=== PATIENT | male | born 1960 | race Caucasian/White ===

== ENCOUNTER → 2016-04-14 | Outpatient (CLI) | payer BC ==
[~2016-04-14] MED LIST: ASPI81TA28 PO; DOCU-94 PO; GLUCTAB32 PO; MULT-506 PO; SULF800T23 PO; TPRSR/100 PO
--- NOTE | 2016-04-14 11:30 | DIAGNOSTIC IMAGING REPORT ---
ULTRASOUND RIGHT UPPER QUADRANT ABDOMEN CLINICAL HISTORY: Right upper quadrant abdominal pain. Elevated hepatic transaminases. COMPARISON STUDY: No priors. TECHNIQUE: Real-time, grayscale, and color flow sonography of the right upper quadrant of the abdomen was performed. Images are reviewed in the transverse and longitudinal planes. FINDINGS: Liver: The liver is normal in enlarged and demonstrates heterogeneously increased echotexture consistent with hepatic steatosis. There is no intrahepatic biliary ductal dilatation. The main portal vein is patent. Gallbladder: The gallbladder is normal in appearance. No gallstones are identified. There is no gallbladder wall thickening or pericholecystic fluid. A sonographic Rose's sign is reportedly absent. The common bile duct measures up to 0.5 cm in diameter. Pancreas: Not well visualized due to overlying bowel gas. Right kidney: Survey images of the right kidney demonstrate normal size and echotexture. There is no hydronephrosis. Ascites: None. IMPRESSION: 1. No acute sonographic abnormality is identified. No gallstones are seen. 2. Hepatomegaly and hepatic steatosis. Electronically signed by: Milo Aguilera M.D. 04/14/2016 11:29 AM Dictated Date/Time: 04/14/2016 11:24 AM
--- NOTE | 2016-04-14 12:02 | DIAGNOSTIC IMAGING REPORT ---
ULTRASOUND BILATERAL LOWER EXTREMITY ARTERIAL; ANKLE-BRACHIAL INDICES CLINICAL HISTORY: Lower extremity neuropathy. COMPARISON STUDY: No priors. TECHNIQUE: Real-time, grayscale, and color Doppler sonography of the arteries of the right and left lower extremity is performed from the inguinal crease to the foot. Ankle-brachial indices are calculated. FINDINGS: Ankle-brachial indices: Right brachial pressure measures 112. Pressures in the right posterior tibial artery measure 137 for an ABELARDO of 1.12, and pressures in the right or dorsalis pedis artery measure 140 for an ABELARDO of 1.15. Left brachial pressure measures 122. Left posterior tibial artery pressure measures 147 for an ABELARDO of 1.20, and left dorsalis pedis pressures measure 139 for an ABELARDO of 1.14. Right lower extremity: No significant atherosclerotic plaque is identified throughout the arteries of the right lower extremity. There are triphasic waveforms in the right common femoral artery with velocities measuring up to 113 cm/s. The right profunda femoris artery is patent with velocities measuring up to 66 cm/s. There are triphasic waveforms seen throughout the superficial femoral artery with velocities measuring up to 135 cm/s. There are triphasic waveforms in the popliteal artery with velocities measuring up to 108 cm/s. There is three-vessel runoff to the right foot. Velocities within the dorsalis pedis artery measure up to 206 cm/s. Left lower extremity: No significant atherosclerotic plaque is identified. There are triphasic waveforms seen in the left common femoral artery with velocities measuring up to 93 cm/s. The profunda femoris artery is patent with velocities measuring up to 56 cm/s. There are triphasic waveforms seen throughout the left superficial femoral artery with velocities measuring up to 118 cm/s. Triphasic waveforms are present in the popliteal artery with velocities measuring up to 97 cm/s. There is three-vessel runoff to the left foot. Velocities within the left dorsalis pedis artery measure up to 104 cm/s. IMPRESSION: 1. No significant atherosclerotic plaque is identified. There is no sonographic evidence of hemodynamically significant stenosis or focal vessel cut off throughout the arteries of the right or left lower extremity. 2. Ankle brachial indices as above. Dictated: 04/14/2016 11:44 AM Transcribed: 04/14/2016 12:01 PM Martha Electronically signed by: Milo Aguilera M.D. 04/14/2016 12:08 PM Dictated Date/Time: 04/14/2016 11:44 AM
== END | disposition home or self-care (01) ==
LOC: C.ULTR 09:37
PROVIDERS: ATTEND Family Medicine
DX: R94.5 Abnormal results of liver function studies (principal); I73.9 Peripheral vascular disease, unspecified

== ENCOUNTER → 2016-12-14 | Outpatient (CLI) | payer BC ==
[2016-12-14 12:48] LABS: BASO % 0.4 %; BASO ABS # 0.03 K/uL (0-0.2); COMPLETE YES; EOS % 2.9 %; HEMATOCRIT 42.4 % (42-52); IG% 0.3 %; LYMPH ABS # 1.91 K/uL (1.2-3.4); MEAN CORPUSCULAR HEMOGLOBIN 29.3 pg (25-34); MEAN CORPUSCULAR HGB CONC 33.3 g/dl (32-36); MEAN PLATELET VOLUME 10.8 fL (7.4-10.4); MONO % 9.4 %; PLATELET COUNT 226 K/uL (130-400); RED BLOOD COUNT 4.82 M/uL (4.7-6.1); WHITE BLOOD COUNT 7.35 K/uL (4.8-10.8)
[2016-12-14 13:19] LABS: ALT/SGPT 44 U/L (12-78); BLOOD UREA NITROGEN 16 mg/dl (7-18); BUN/CREATININE RATIO 16.2 (10-20); CALCIUM 9.3 mg/dl (8.5-10.1); CARBON DIOXIDE 25 mmol/L (21-32); CHLORIDE 106 mmol/L (98-107); CHOLESTEROL 149 mg/dl (0-200); CREATININE 0.99 mg/dl (0.60-1.40); GLUCOSE 105 mg/dl (70-99); POTASSIUM 4.4 mmol/L (3.5-5.1); SODIUM 139 mmol/L (136-145); TRIGLYCERIDES 246 mg/dl (0-150); VERY LOW DENSITY LIPOPROT CALC 49 mg/dl
[2016-12-14 13:23] LABS: ALB/GLOB RATIO 1.1 (0.9-2); ALKALINE PHOSPHATASE 82 U/L (45-117); AST/SGOT 33 U/L (15-37); CHOLESTEROL/HDL RATIO 3.6; HDL CHOLESTEROL 41 mg/dl; LDL CHOLESTEROL CALCULATED 59 mg/dl
== END | disposition home or self-care (01) ==
LOC: C.LAB 11:12
PROVIDERS: ATTEND Physician Assistant Medical
DX: E11.65 Type 2 diabetes mellitus with hyperglycemia (principal); Z13.89 Encounter for screening for other disorder; E78.2 Mixed hyperlipidemia

== ENCOUNTER 2023-12-14 18:47 | Inpatient (IN) ==
[2023-12-14] MEDS ORDERED: MoRPHine SULFATE 4 MG/ML 1 ML CARP\\VIAL IV PRN (19:15)
--- NOTE | 2023-12-14 19:29 | Emergency Department Note ---
Impression & Plan Acute left flank pain, Ureteral stone, Hydronephrosis, KAYLYNN (acute kidney injury), Failure of outpatient treatment ED Provider Note NAME: FRANCISCO FLORES AGE: 63 SEX: M : 1960 ARRIVES VIA: Walk-In INFORMANT: [Patient] ED PROVIDER(S): [Milo Helms MD] CHIEF COMPLAINT: Left flank pain HISTORY OF PRESENT ILLNESS: The patient is a 63-year-old male who states that around a week ago, he thought maybe he hurt his back as he seemed to have some intermittent pain in the left flank. It was better for a bit and then, when he was in [place], he began having severe discomfort. He went to the ED there and was told he was passing a kidney stone. The patient is waiting for a urology appointment. The patient presents today complaining of increasing pain in the left flank. He works here at our hospital. He thought maybe he may have pulled a muscle on top of passing a kidney stone. He cannot recall pulling or lifting something that would have aggravated his back. Patient has had nausea, no vomiting. He does not have any testicular pain. He did notice some changes in his urine initially, that seems to have resolved. He was prescribed medication for pain and to help with stone passage. PMHx/PSHx/Social Hx: See Below PHYSICAL EXAM: GENERAL: Patient is in moderate distress from pain. Having a hard time sitting still. HEENT: No acute trauma, normocephalic atraumatic, mucous membranes moist, no nasal congestion. NECK: No stridor, no adenopathy, no meningismus, trachea is midline. LUNGS: Clear to auscultation bilaterally, no wheeze, no rhonchi, breath sounds equal. HEART: Without murmurs gallops or rubs, regular rate and rhythm. ABDOMEN: Soft, nontender, no peritonitis. EXTREMITIES: No cyanosis, full range of motion of all the joints without pain or difficulty. NEUROLOGIC: Oriented x 3, no acute motor or sensory deficits, no focal weakness. SKIN: No jaundice, no diaphoresis. Back: No flank discomfort with percussion. DIFFERENTIAL DIAGNOSIS: Musculoskeletal pain, fracture, UTI, pyelonephritis, hydronephrosis, ureteral stone, failed outpatient management, among others. EMERGENCY DEPARTMENT PROCEDURES: MEDICAL DECISION MAKING: There is no leukocytosis or concerning anemia. There is a normal platelet count. There is evidence for acute kidney injury with a creatinine of 1.76. No electrolyte abnormality in need of emergent correction. Lipase slightly elevated, this is not high enough to diagnose pancreatitis. There was no concerning liver enzyme elevation. Abdominal and pelvis CT shows hydronephrosis on the left with a proximal 5 mm left ureteral stone. No acute surgical process by CT imaging. Urinalysis result is pending. On exam, the patient appeared quite uncomfortable and had a hard time sitting still. The patient received IV saline, 1 L. He was given IV Zofran, IV morphine, IV Toradol. He is more comfortable. Given the acute kidney injury, given the failed outpatient management, I do think a hospital stay is warranted. He may require ureteral stenting by urology. I did speak with the patient and case management. The on-call hospitalist was consulted. Prior/Outside records/notes reviewed: None Imaging/x-ray results per my interpretation: Chronic Medical/Social conditions affecting care: None Care/Management discussed with: Case management, the on-call hospitalist. Level of care consideration(s): After review of the information above and other included data: --I believe the patient requires escalation of care to admission DISPOSITION: Admission Past Med/Surg History Problem List (Updated 12/14/23 @ 21:33 by Milo Helms MD) Failure of outpatient treatment (Acute) KAYLYNN (acute kidney injury) (Acute) Hydronephrosis (Acute) Ureteral stone (Acute) Acute left flank pain (Acute) Cardiomyopathy Frequent ventricular premature beats Heart palpitations (Chronic) Sepsis Medical History Serrated adenoma of colon Sciatica Hypercholesterolemia Exogenous obesity Dysrhythmias Blood pressure elevated without history of HTN Apnea, sleep Diabetes Surgical History History of appendectomy Social History Smoking Status: Never smoker Preferred Language: Romansh Feels Safe at Home: Yes Allergies Allergies Allergy/AdvReac Type Severity Reaction Status Date / Time No Known Allergies Allergy Verified 07/02/23 21:18 Home Meds Home Medications Medication Instructions Recorded Confirmed armodafinil 150 mg tablet (Nuvigil) 150 mg PO QAM 11/22/18 07/02/23 canagliflozin 100 mg tablet 100 mg PO DAILY 11/22/18 07/02/23 gabapentin 300 mg capsule 300 mg PO DAILY 11/22/18 07/02/23 metformin 1,000 mg tablet 1,000 mg PO BID 11/22/18 07/02/23 multivitamin (Daily Multi-Vitamin 1 tab PO DAILY 11/22/18 07/02/23 tablet) Glucosamine Chondroitin See Rx Instructions .Route .COMPLEX 07/02/23 07/02/23 atorvastatin 10 mg tablet 10 mg PO PM 07/02/23 07/02/23 fenofibrate nanocrystallized 145 145 mg PO PM 07/02/23 07/02/23 mg tablet Previous Rx's Medication Instructions Recorded canagliflozin 100 mg tablet 100 mg PO DAILY #30 tabs 07/02/23 lisinopril 5 mg tablet 5 mg PO DAILY #90 tabs 07/03/23 metoprolol succinate 200 mg 200 mg PO DAILY #90 tabs 07/24/23 tablet,extended release 24 hr Results & Data (ED) Vital Signs Vital Signs - 24 hr 12/14/23 18:56 12/14/23 19:57 12/14/23 21:18 Temperature 36.6 C Temperature Source Temporal Artery Scan Pulse Rate 89 Pulse Rate [Right Finger] 91 H 84 Respiratory Rate 18 19 19 Respiratory Effort / Characteristics Non-Labored Spontaneous Respiratory Depth Normal Respiratory Pattern Regular Blood Pressure 164/98 H Blood Pressure [Right Arm] 178/114 H 138/85 Blood Pressure Mean 120 Blood Pressure Mean [Right Arm] 135 102 Blood Pressure Position Sitting Pulse Oximetry 97 98 94 Oxygen Delivery Method Room Air Room Air Room Air Sepsis Recent Fever Within 48 Hours No Sepsis New/Unexplained Change in Mental Status N/A Sepsis Action Taken by Nursing No Action Required Home Medications Current Medication List: was personally reviewed by me Laboratory Data Attestation: I reviewed the patient's lab results. 12/14/23 19:00 12/14/23 19:00 Lab Results 12/14/23 Range/Units 19:00 WBC 10.47 (4.8-10.8) K/ul RBC 4.71 (4.70-6.10) M/uL Hgb 13.6 L (14.0-18.0) g/dl Hct 40.7 L (42.0-52.0) % MCV 86.4 (80.0-100.0) fL MCH 28.9 (25.0-34.0) pg MCHC 33.4 (32.0-36.0) g/dL RDW Std Deviation 44.0 (36.4-46.3) fL RDW Coeff of Gosia 13.8 (11.5-14.5) % Plt Count 250 (130-400) K/uL MPV 11.1 (9.4-12.4) fL Immature Gran % (Auto) 0.3 % Neut % (Auto) 78.9 % Lymph % (Auto) 9.6 % [place] % (Auto) 10.3 % Eos % (Auto) 0.6 % Baso % (Auto) 0.3 % Neut # (Auto) 8.26 H (1.40-6.50) K/uL Lymph # (Auto) 1.01 L (1.20-3.40) K/uL [place] # (Auto) 1.08 H (0.11-0.59) K/uL Eos # (Auto) 0.06 (0.00-0.50) K/uL Baso # (Auto) 0.03 (0.00-0.20) K/uL Immature Gran # (Auto) 0.03 (0.01-0.20) K/uL Sodium 134 L (136-145) mmol/L Potassium 4.6 (3.5-5.1) mmol/L Chloride 98 (98-107) mmol/L Carbon Dioxide 25 (21-32) mmol/L Anion Gap 11 (3-11) BUN 31 H (6-23) mg/dl Creatinine 1.76 H (0.6-1.4) mg/dl Est Cr Clr Drug Dosing Not Reportable eGFR 42.91 BUN/Creatinine Ratio 17.6 (10-20) Glucose 86 (70-99(Fasting)) mg/dl Calcium 10.4 H (8.6-10.3) mg/dl Total Bilirubin 0.7 (0.2-1.0) mg/dl AST 20 (13-39) U/L ALT 12 (7-52) U/L Alkaline Phosphatase 52 (34-104) U/L Total Protein 8.1 (6.0-8.3) gm/dl Albumin 4.5 (3.4-5.0) gm/dl Globulin 3.6 (2.5-4.0) gm/dl Albumin/Globulin Ratio 1.3 (0.9-2) Lipase 126 H (11-82) U/L Administered Medications Discontinued Medications Sodium Chloride (Nss) 1,000 mls @ 999 mls/hr IV .Q1H1M STA Stop: 12/14/23 20:15 Last Infusion: 12/14/23 21:15 Dose: Infused Documented By: Admin: 12/14/23 19:54 Dose: 999 mls/hr Documented By: ASW Ketorolac Tromethamine (Ketorolac Tromethamine 15 Mg/Ml Vial) 15 mg IV NOW STA Stop: 12/14/23 19:16 Last Admin: 12/14/23 19:54 Dose: 15 mg Documented By: ASW Morphine Sulfate (Morphine Sulfate 4 Mg/Ml 1 Ml Carp\Vial) 4 mg IV NOW STA Stop: 12/14/23 19:16 Last Admin: 12/14/23 19:54 Dose: 4 mg Documented By: ASW Ondansetron HCl (Ondansetron Inj 2 Mg/Ml 2 Ml Vial) 4 mg IV NOW STA Stop: 12/14/23 19:16 Last Admin: 12/14/23 19:54 Dose: 4 mg Documented By: ASW Imaging Data Radiologist's Impression: Abdomen/Pelvis CT 12/14/23 19:16 Exam(s): CT ABDOMEN + PELVIS Without Contrast EXAM: CT Abdomen and Pelvis Without Intravenous Contrast CLINICAL HISTORY: Reason for exam: left flank pain. TECHNIQUE: Axial computed tomography images of the abdomen and pelvis without intravenous contrast. CTDI is 27 mGy and DLP is 1389.3 mGy-cm. Automated exposure control was utilized for the study. A dose lowering technique was utilized adhering to the principles of ALARA. COMPARISON: No relevant prior studies available. FINDINGS: Lung bases: Unremarkable. No mass. No consolidation. ABDOMEN: Liver: Unremarkable. Gallbladder and bile ducts: Unremarkable. No calcified stones. No ductal dilation. Pancreas: Unremarkable. No ductal dilation. Spleen: Unremarkable. No splenomegaly. Adrenals: Unremarkable. No mass. Kidneys and ureters: There is left sided hydroureteronephrosis due to the presence of a 5 mm calculus in the left proximal ureter. 1.5 mm nonobstructing stone seen in the lower pole of the left kidney. Stomach and bowel: Moderate amount of fecal matter is seen in the cecum and ascending colon. No obstruction. No mucosal thickening. PELVIS: Appendix: No findings to suggest acute appendicitis. Bladder: Unremarkable. No stones. Reproductive: Unremarkable as visualized. ABDOMEN and PELVIS: Intraperitoneal space: Unremarkable. No free air. No significant fluid collection. Bones/joints: No acute fracture. No dislocation. Soft tissues: Unremarkable. Vasculature: Unremarkable. No abdominal aortic aneurysm. Lymph nodes: Unremarkable. No enlarged lymph nodes. Other findings: There is L2/3 posterior disc osteophyte complex seen. IMPRESSION: Left hydroureteronephrosis due to 5 mm diameter calculus in the left proximal ureter Electronically signed by: Jhonny De La Torre MD 12/14/23 21:05 PM Discharge Plan Visit Data Chief Complaint: Back Injury/Pain Stated Complaint: back spasms, pain ED Provider: Milo Helms Discharge Problem: Acute left flank pain, Ureteral stone, Hydronephrosis, KAYLYNN (acute kidney injury), Failure of outpatient treatment Patient Disposition: Admitted As Inpatient Condition: Fair Forms Stand Alone Forms: [facility] Prescriptions Prescriptions: No Action lisinopril 5 mg tablet 5 mg PO DAILY Qty: 90 3RF metoprolol succinate 200 mg tablet extended release 24 hr 200 mg PO DAILY Qty: 90 3RF gabapentin 300 mg capsule 300 mg PO DAILY Invokana 100 mg tablet 100 mg PO DAILY metformin 1,000 mg tablet 1,000 mg PO BID multivitamin [Daily Multi-Vitamin] tablet 1 tab PO DAILY armodafinil [Nuvigil] 150 mg tablet 150 mg PO QAM atorvastatin 10 mg tablet 10 mg PO PM fenofibrate nanocrystallized 145 mg tablet 145 mg PO PM Glucosamine Chondroitin See Rx Instructions .ROUTE .COMPLEX Patient Comments: 1 tab PO BID; Rx Instructions: Patient states he takes; 1 tablet by mouth twice daily canagliflozin 100 mg tablet 100 mg PO DAILY Qty: 30 0RF Referrals Referrals: Shailesh Guerra [Primary Care Provider] - Discharge Problem: Hydronephrosis Qualifiers: Hydronephrosis type: with renal calculous obstruction Qualified Code(s): N13.2 - Hydronephrosis with renal and ureteral calculous obstruction
[2023-12-14] MEDS: ONDANSETRON INJ 2 MG/ML 2 ML VIAL IV STA (19:54)
[2023-12-14] MEDS: SODIUM CHLORIDE 0.9% 1,000 ML IV STA (19:54)
[2023-12-14] MEDS: MoRPHine SULFATE 4 MG/ML 1 ML CARP\\VIAL IV STA (19:54)
[2023-12-14] MEDS: KETOROLAC TROMETHAMINE 15 MG/ML VIAL IV STA (19:54)
[2023-12-14 20:02] LABS: Basophils # (auto) 0.03 K/uL (0.00-0.20); Basophils % (auto) 0.3 %; Eosinophils # (auto) 0.06 K/uL (0.00-0.50); Eosinophils % (auto) 0.6 %; Hematocrit (blood only) 40.7 % (42.0-52.0); Hemoglobin 13.6 g/dl (14.0-18.0); Immature Granulocytes # (auto) 0.03 K/uL (0.01-0.20); Immature Granulocytes % (auto) 0.3 %; Lymphocytes # (auto) 1.01 K/uL (1.20-3.40); Lymphocytes % (auto) 9.6 %; Mean Corpuscular Hemoglobin 28.9 pg (25.0-34.0); Mean Corpuscular Hgb Conc 33.4 g/dL (32.0-36.0); Mean Corpuscular Volume 86.4 fL (80.0-100.0); Mean Platelet Volume 11.1 fL (9.4-12.4); Monocytes # (auto) 1.08 K/uL (0.11-0.59); Monocytes % (auto) 10.3 %; Neutrophils # (auto) 8.26 K/uL (1.40-6.50); Neutrophils % (auto) 78.9 %; Platelet Count 250 K/uL (130-400); RDW Coefficient of Variation 13.8 % (11.5-14.5); Red Blood Count 4.71 M/uL (4.70-6.10); White Blood Count 10.47 K/ul (4.8-10.8)
[2023-12-14 20:13] LABS: Alanine Aminotransferase 12 U/L (7-52); Albumin Globulin Ratio 1.3 (0.9-2); Albumin Level 4.5 gm/dl (3.4-5.0); Alkaline Phosphatase 52 U/L (34-104); Anion Gap 11 (3-11); Aspartate Aminotransferase 20 U/L (13-39); BUN Creatinine Ratio 17.6 (10-20); Bilirubin,Total 0.7 mg/dl (0.2-1.0); Blood Urea Nitrogen 31 mg/dl (6-23); Calcium 10.4 mg/dl (8.6-10.3); Carbon Dioxide 25 mmol/L (21-32); Chloride 98 mmol/L (98-107); Globulin 3.6 gm/dl (2.5-4.0); Glucose 86 mg/dl (70-99(Fasting)); Lipase 126 U/L (11-82); Potassium 4.6 mmol/L (3.5-5.1); Sodium 134 mmol/L (136-145); Total Protein 8.1 gm/dl (6.0-8.3)
--- NOTE | 2023-12-14 21:06 | CT Scan Report ---
Exam(s): CT ABDOMEN + PELVIS Without Contrast EXAM: CT Abdomen and Pelvis Without Intravenous Contrast CLINICAL HISTORY: Reason for exam: left flank pain. TECHNIQUE: Axial computed tomography images of the abdomen and pelvis without intravenous contrast. CTDI is 27 mGy and DLP is 1389.3 mGy-cm. Automated exposure control was utilized for the study. A dose lowering technique was utilized adhering to the principles of ALARA. COMPARISON: No relevant prior studies available. FINDINGS: Lung bases: Unremarkable. No mass. No consolidation. ABDOMEN: Liver: Unremarkable. Gallbladder and bile ducts: Unremarkable. No calcified stones. No ductal dilation. Pancreas: Unremarkable. No ductal dilation. Spleen: Unremarkable. No splenomegaly. Adrenals: Unremarkable. No mass. Kidneys and ureters: There is left sided hydroureteronephrosis due to the presence of a 5 mm calculus in the left proximal ureter. 1.5 mm nonobstructing stone seen in the lower pole of the left kidney. Stomach and bowel: Moderate amount of fecal matter is seen in the cecum and ascending colon. No obstruction. No mucosal thickening. PELVIS: Appendix: No findings to suggest acute appendicitis. Bladder: Unremarkable. No stones. Reproductive: Unremarkable as visualized. ABDOMEN and PELVIS: Intraperitoneal space: Unremarkable. No free air. No significant fluid collection. Bones/joints: No acute fracture. No dislocation. Soft tissues: Unremarkable. Vasculature: Unremarkable. No abdominal aortic aneurysm. Lymph nodes: Unremarkable. No enlarged lymph nodes. Other findings: There is L2/3 posterior disc osteophyte complex seen. IMPRESSION: Left hydroureteronephrosis due to 5 mm diameter calculus in the left proximal ureter Electronically signed by: Jhonny De La Torre MD 12/14/23 21:05 PM
[2023-12-14 21:37] LABS: Appearance Urine Clear (Clear); Bilirubin Urine Negative (Negative); Blood Urine Negative (Negative); Color Urine Yellow; Glucose Urine UA 3+ (Negative); Ketones Urine 1+ (Negative); Leukocyte Esterase Urine Negative (Negative); Nitrite Urine Negative (Negative); Protein Urine Negative (Negative); Specific Gravity Urine 1.032 (1.000-1.030); Urobilinogen Urine Negative (Negative)
--- NOTE | 2023-12-14 22:00 | History & Physical Report ---
Date of Service December 14, 2023 Assessment & Plan (1) KAYLYNN (acute kidney injury): Plan: Multifactorial: Obstructive uropathy from kidney stone NSAID Rx contributory Anemia possibly from hematuria hx nonischemic cardiomyopathy, patient on the dry side PAF, patient NSR hypertension, stable hyperlipidemia, on statin Rx DM2 on oral medications, well-controlled as of recent hemoglobin A1c of 6.17 October 2023 history of melanoma status post surgery Narcotic induced constipation Admit to [facility] Baseline UA, monitor creatinine response to IVF Hold lisinopril and NSAID Rx given ARF Continue Flomax Strain urine Urology consult Re: Obstructive uropathy N.p.o. after midnight in anticipation of procedure Bowel regimen ISS BG goal 1 10-1 40 DVT prophylaxis. SCDs Re: Hematuria Full code Text document was generated using [employer] voice recognition software. It may contain grammatical or spelling errors. Kindly contact undersigned for clarification of any documentation item in question. History of Present Illness Chief Complaint: Left flank pain, kidney stone Primary Care Provider: Shailesh Guerra History obtained from patient and records. Medical history significant for hx nonischemic cardiomyopathy (EF 60-65 %, TTE 2020), PAF, PVCs, hypertension, hyperlipidemia, DARELL, DM2 on oral medications, history of melanoma status post surgery, urolithiasis. Last confinement 2015 for right knee cellulitis/prepatellar bursitis. 2 weeks ago, patient noted intermittent achy left flank pain symptoms which started from lifting a bag of cement. Last week, patient noted intense left flank discomfort associated with some hematuria, nausea, vomiting symptoms while shopping for furniture with at [place]. Patient seen at [facility] ER. CAT scan showed kidney stone on the left side. Patient prescribed Flomax, home narcotic, and NSAID medication. He was instructed to strain urine. Intermittent relief of pain at home. Constipation symptoms noted. Patient consulted ER for worsening symptoms today. No fever, no chills. Denies headache, chest pain, SOB. Medical History as above Surgical History : Skin cancer surgery/skin grafting Family History : Heart disease Personal/Social history : Non-smoker, no EtOH intake, hospital facilities employee Allergies Allergy/AdvReac Type Severity Reaction Status Date / Time No Known Allergies Allergy Verified 12/14/23 22:34 Home Medications Medication Instructions Recorded Confirmed Type armodafinil 150 mg tablet (Nuvigil) 150 mg PO QAM 11/22/18 12/14/23 History canagliflozin 100 mg tablet 100 mg PO QAM 11/22/18 12/14/23 History gabapentin 300 mg capsule 300 mg PO HS 11/22/18 12/14/23 History metformin 1,000 mg tablet 1,000 mg PO BID 11/22/18 12/14/23 History atorvastatin 10 mg tablet 10 mg PO HS 07/02/23 12/14/23 History fenofibrate nanocrystallized 145 145 mg PO HS 07/02/23 12/14/23 History mg tablet cyclobenzaprine 10 mg tablet 10 mg PO DAILY PRN Muscle Spasm 12/14/23 12/14/23 History dulaglutide 1.5 mg/0.5 mL 1.5 mg subcut WK 12/14/23 12/14/23 History subcutaneous pen injector (Trulicity) glucosamine sulf dipot 1 cap PO BID 12/14/23 12/14/23 History chlr,msm,chond 550 mg-C 30 mg-kim 1 mg capsule (Glucosamine Chondroitin) lisinopril 5 mg tablet 5 mg PO QAM 12/14/23 12/14/23 History metoprolol succinate 200 mg 200 mg PO QAM 12/14/23 12/14/23 History tablet,extended release 24 hr rkqdmnxjgsko-zapionys-pzxmwm 1 tab PO QAM 12/14/23 12/14/23 History tablet (Multivitamin 50 Plus tablet) tamsulosin 0.4 mg capsule 0.8 mg PO QAM 12/14/23 12/14/23 History tramadol 50 mg tablet 50 mg PO Q6 PRN Pain 12/14/23 12/14/23 History Past Med/Surg History Problem List (Updated 12/14/23 @ 21:33 by Milo Helms MD) Failure of outpatient treatment (Acute) KAYLYNN (acute kidney injury) (Acute) Hydronephrosis (Acute) Ureteral stone (Acute) Acute left flank pain (Acute) Cardiomyopathy Frequent ventricular premature beats Heart palpitations (Chronic) Sepsis Medical History Serrated adenoma of colon Sciatica Hypercholesterolemia Exogenous obesity Dysrhythmias Blood pressure elevated without history of HTN Apnea, sleep Diabetes Surgical History History of appendectomy Social History Smoking Status: Unknown if ever smoked Hx Alcohol Use: No Hx Substance Use: No Preferred Language: Tajik Communication Ability: Effective Payer Specialist Required: No Beliefs That Will Affect Care: None Current Living Situation: Family Feels Safe at Home: Yes Review of Systems Review of Systems: As per HPI, all other systems reviewed and negative Physical Exam Physical Exam: GENERAL: Comfortable, pleasant, no respiratory distress SKIN: Normal color, warm HEENT: [place] palpebral conjunctivae, no ptosis, dry buccal mucosa NECK : Supple, no tenderness CHEST : CTA, no tenderness HEART : RRR, no obvious murmurs ABDOMEN: Some distention, left flank tenderness EXTREMITIES : No LE swelling/tenderness, no other conspicuous deformities noted NEUROLOGIC : Coherent, no facial asymmetry, no other gross focality Results & Data Results & Data Vital Signs (Past 12 Hours) Vital Signs Temp Pulse Pulse Resp BP BP Pulse Ox 12/14/23 21:18 84 19 138/85 94 12/14/23 19:57 91 H 19 178/114 H 98 12/14/23 18:56 36.6 C 89 18 164/98 H 97 O2 Del Method 12/14/23 21:18 Room Air 12/14/23 19:57 Room Air 12/14/23 18:56 Room Air Laboratory Results Laboratory Results WBC 10.47 K/ul (4.8-10.8) 12/14/23 19:00 RBC 4.71 M/uL (4.70-6.10) 12/14/23 19:00 Hgb 13.6 g/dl (14.0-18.0) L 12/14/23 19:00 Hct 40.7 % (42.0-52.0) L 12/14/23 19:00 MCV 86.4 fL (80.0-100.0) 12/14/23 19:00 MCH 28.9 pg (25.0-34.0) 12/14/23 19:00 MCHC 33.4 g/dL (32.0-36.0) 12/14/23 19:00 RDW Std Deviation 44.0 fL (36.4-46.3) 12/14/23 19:00 RDW Coeff of Gosia 13.8 % (11.5-14.5) 12/14/23 19:00 Plt Count 250 K/uL (130-400) 12/14/23 19:00 MPV 11.1 fL (9.4-12.4) 12/14/23 19:00 Immature Gran % (Auto) 0.3 % 12/14/23 19:00 Neut % (Auto) 78.9 % 12/14/23 19:00 Lymph % (Auto) 9.6 % 12/14/23 19:00 White % (Auto) 10.3 % 12/14/23 19:00 Eos % (Auto) 0.6 % 12/14/23 19:00 Baso % (Auto) 0.3 % 12/14/23 19:00 Neut # (Auto) 8.26 K/uL (1.40-6.50) H 12/14/23 19:00 Lymph # (Auto) 1.01 K/uL (1.20-3.40) L 12/14/23 19:00 White # (Auto) 1.08 K/uL (0.11-0.59) H 12/14/23 19:00 Eos # (Auto) 0.06 K/uL (0.00-0.50) 12/14/23 19:00 Baso # (Auto) 0.03 K/uL (0.00-0.20) 12/14/23 19:00 Immature Gran # (Auto) 0.03 K/uL (0.01-0.20) 12/14/23 19:00 Sodium 134 mmol/L (136-145) L 12/14/23 19:00 Potassium 4.6 mmol/L (3.5-5.1) 12/14/23 19:00 Chloride 98 mmol/L (98-107) 12/14/23 19:00 Carbon Dioxide 25 mmol/L (21-32) 12/14/23 19:00 Anion Gap 11 (3-11) 12/14/23 19:00 BUN 31 mg/dl (6-23) H 12/14/23 19:00 Creatinine 1.76 mg/dl (0.6-1.4) H 12/14/23 19:00 Est Cr Clr Drug Dosing Not Reportable 12/14/23 19:00 eGFR 42.91 12/14/23 19:00 BUN/Creatinine Ratio 17.6 (10-20) 12/14/23 19:00 Glucose 86 mg/dl (70-99(Fasting)) 12/14/23 19:00 Calcium 10.4 mg/dl (8.6-10.3) H 12/14/23 19:00 Total Bilirubin 0.7 mg/dl (0.2-1.0) 12/14/23 19:00 AST 20 U/L (13-39) 12/14/23 19:00 ALT 12 U/L (7-52) 12/14/23 19:00 Alkaline Phosphatase 52 U/L (34-104) 12/14/23 19:00 Total Protein 8.1 gm/dl (6.0-8.3) 12/14/23 19:00 Albumin 4.5 gm/dl (3.4-5.0) 12/14/23 19:00 Globulin 3.6 gm/dl (2.5-4.0) 12/14/23 19:00 Albumin/Globulin Ratio 1.3 (0.9-2) 12/14/23 19:00 Lipase 126 U/L (11-82) H 12/14/23 19:00 Urine Color Yellow 12/14/23 21:28 Urine Appearance Clear (Clear) 12/14/23 21:28 Urine pH 5.0 (4.5-7.5) 12/14/23 21:28 Ur Specific [place] 1.032 (1.000-1.030) H 12/14/23 21:28 Urine Protein Negative (Negative) 12/14/23 21:28 Urine Glucose (UA) 3+ (Negative) H 12/14/23 21:28 Urine Ketones 1+ (Negative) H 12/14/23 21:28 Urine Blood Negative (Negative) 12/14/23 21: Urine Nitrite Negative (Negative) 12/14/23 21: Urine Bilirubin Negative (Negative) 12/14/23 21: Urine Urobilinogen Negative (Negative) 12/14/23 21:28 Ur Leukocyte Esterase Negative (Negative) 12/14/23 21:28 Impressions Abdomen/Pelvis CT 12/14/23 19:16 Exam(s): CT ABDOMEN + PELVIS Without Contrast EXAM: CT Abdomen and Pelvis Without Intravenous Contrast CLINICAL HISTORY: Reason for exam: left flank pain. TECHNIQUE: Axial computed tomography images of the abdomen and pelvis without intravenous contrast. CTDI is 27 mGy and DLP is 1389.3 mGy-cm. Automated exposure control was utilized for the study. A dose lowering technique was utilized adhering to the principles of ALARA. COMPARISON: No relevant prior studies available. FINDINGS: Lung bases: Unremarkable. No mass. No consolidation. ABDOMEN: Liver: Unremarkable. Gallbladder and bile ducts: Unremarkable. No calcified stones. No ductal dilation. Pancreas: Unremarkable. No ductal dilation. Spleen: Unremarkable. No splenomegaly. Adrenals: Unremarkable. No mass. Kidneys and ureters: There is left sided hydroureteronephrosis due to the presence of a 5 mm calculus in the left proximal ureter. 1.5 mm nonobstructing stone seen in the lower pole of the left kidney. Stomach and bowel: Moderate amount of fecal matter is seen in the cecum and ascending colon. No obstruction. No mucosal thickening. PELVIS: Appendix: No findings to suggest acute appendicitis. Bladder: Unremarkable. No stones. Reproductive: Unremarkable as visualized. ABDOMEN and PELVIS: Intraperitoneal space: Unremarkable. No free air. No significant fluid collection. Bones/joints: No acute fracture. No dislocation. Soft tissues: Unremarkable. Vasculature: Unremarkable. No abdominal aortic aneurysm. Lymph nodes: Unremarkable. No enlarged lymph nodes. Other findings: There is L2/3 posterior disc osteophyte complex seen. IMPRESSION: Left hydroureteronephrosis due to 5 mm diameter calculus in the left proximal ureter Electronically signed by: Jhonny De La Torre MD 12/14/23 21:05 PM Diagnostic Findings Chest x-ray as per my interpretation atelectasis, borderline cardiomegaly EKG as per my interpretation : Rate 80, NSR, LAD, LAFB, no ischemia
[2023-12-14] MEDS ORDERED: LORazepam 0.5 MG TAB PO PRN (22:05)
[2023-12-14] MEDS: TAMSULOSIN HCL 0.4 MG CAP PO SCH (22:23)
[2023-12-14 22:26] LABS: Magnesium 1.9 mg/dl (1.7-2.4)
[2023-12-14] MEDS: DOCUSATE SODIUM/SENNA 50/8.6MG TAB PO SCH (22:58)
[2023-12-14] MEDS: SODIUM CHLORIDE 0.9% 1,000 ML IV ONE (22:58)
[2023-12-14] MEDS: LACTULOSE SYRUP 30 GM/45 ML UDP PO STA (22:59)
[2023-12-14] MEDS ORDERED: CARBOHYDRATES FOR HYPOGLYCEMIA PO PRN (23:08)
[2023-12-14] MEDS ORDERED: GLUCAGON FOR INJ 1 MG VIAL SQ PRN (23:08)
[2023-12-14] MEDS ORDERED: DEXTROSE 50% 50 ML SYRINGE IV PRN (23:08)
[2023-12-14] MEDS ORDERED: GLUCOSE 40% GEL 15 GM TUBE PO PRN (23:08)
[2023-12-14] MEDS ORDERED: GLUCOSE 10 TAB/TUBE PO PRN (23:08)
[2023-12-14] MEDS: INSULIN ASPART PER UNIT CHARGE SC SCH (23:56)
[2023-12-15] MEDS: ACETAMINOPHEN 325 MG TAB PO PRN (04:03)
--- NOTE | 2023-12-15 06:55 | XRay Report ---
XR chest 1V portable CLINICAL HISTORY: Renal failure. COMPARISON STUDY: Chest radiograph April 23, 2015. FINDINGS: Lung volumes are normal. Lungs are clear. There is no pneumothorax or pleural effusion. Car diac size is normal. Mediastinal contours are normal. There is no evidence for pulmonary edema. IMPRESSION: No acute cardiopulmonary findings. ACT 112: Negative or not required by law. Electronically signed by: Jaime Culver M.D. 12/15/2023 6:53 AM
[2023-12-15 07:31] LABS: Basophils # (auto) 0.05 K/uL (0.00-0.20); Basophils % (auto) 0.5 %; Eosinophils # (auto) 0.12 K/uL (0.00-0.50); Eosinophils % (auto) 1.2 %; Hematocrit (blood only) 39.8 % (42.0-52.0); Hemoglobin 12.8 g/dl (14.0-18.0); Immature Granulocytes # (auto) 0.04 K/uL (0.01-0.20); Immature Granulocytes % (auto) 0.4 %; Lymphocytes # (auto) 0.96 K/uL (1.20-3.40); Lymphocytes % (auto) 9.3 %; Mean Corpuscular Hemoglobin 28.1 pg (25.0-34.0); Mean Corpuscular Hgb Conc 32.2 g/dL (32.0-36.0); Mean Corpuscular Volume 87.5 fL (80.0-100.0); Mean Platelet Volume 10.8 fL (9.4-12.4); Monocytes % (auto) 11.7 %; Neutrophils # (auto) 7.91 K/uL (1.40-6.50); Neutrophils % (auto) 76.9 %; Platelet Count 227 K/uL (130-400); RDW Coefficient of Variation 13.8 % (11.5-14.5); RDW Standard Deviation 44.3 fL (36.4-46.3); Red Blood Count 4.55 M/uL (4.70-6.10); White Blood Count 10.28 K/ul (4.8-10.8)
[2023-12-15 07:48] LABS: BUN Creatinine Ratio 19.5 (10-20); Calcium 9.4 mg/dl (8.6-10.3); Creatinine Clr Calc Pharmacy 61.8 ml/min; Potassium 4.2 mmol/L (3.5-5.1)
[2023-12-15] MEDS: TAMSULOSIN HCL 0.4 MG CAP PO SCH (08:12)
[2023-12-15] MEDS: CEROVITE ADV FORMULA TAB PO SCH (08:12)
[2023-12-15] MEDS: METOPROLOL SUCC 50MG EXT REL TAB PO SCH (08:12)
[2023-12-15] MEDS: PROMETHAZINE 6.25 MG/50.25 ML BAG IV PRN (08:20)
[2023-12-15] MEDS: HYDROmorphone INJ 0.5 MG/0.5 ML SYR IV PRN (08:20)
[2023-12-15] MEDS: bisacodyL 10 MG SUPP PR STA (09:47)
[2023-12-15] MEDS: SODIUM CHLORIDE 0.9% 1,000 ML IV SCH (09:54)
[2023-12-15] MEDS: oxyCODONE HCL IR 5 MG TAB (IMMEDIATE RELEASE) PO PRN (09:57)
--- NOTE | 2023-12-15 10:38 | Electrocardiogram Report ---
Test Reason : Blood Pressure : */* mmHG Vent. Rate : 81 BPM Atrial Rate : 81 BPM P-R Int : 156 ms QRS Dur : 104 ms QT Int : 372 ms P-R-T Axes : 42 -7 28 degrees QTcB Int : 432 ms Normal sinus rhythm Normal ECG When compared with ECG of 22-May-2023 16:03, (unconfirmed) No significant change was found Confirmed by Darnell Dawson ([id number]) on 12/15/2023 10:38:05 AM Referred By: REFERRED SELF Confirmed By: Darnell Dawson
--- NOTE | 2023-12-15 13:56 | Urology Consultation ---
Date of Consultation December 15, 2023 Assessment & Plan (1) Ureteral stone: (2) Hydronephrosis: (3) KAYLYNN (acute kidney injury): (4) Acute left flank pain: Plan 63 yo male admitted with intractable left flank pain and KAYLYNN secondary to an obstructing 5 mm proximal left ureteral stone. Afebrile, mildly hypertensive but otherwise stable vitals Labs show no leukocytosis, hemoglobin 12.8, and creatinine 1.49 (was 1.76 on admission) Urinalysis not suggestive of infection We reviewed his CT imaging, specifically the obstructing 5 mm proximal left ureteral stone. We discussed options for acute stone management with cystoscopy and stent placement. Ureteral stents were discussed as well as postoperative issues and pain management. He is aware a second procedure will be needed for stone treatment. We discussed other options including symptom control with trial of passage. Al so discussed ESWL if the stone is visible on KUB. Risks and benefits of each were discussed. Given his intractable left flank pain and KAYLYNN, will proceed to OR today for cystoscopy, left retrograde pyelogram, left ureteral stent placement. Risks and benefits to be reviewed with patient by Dr. Lauren. Will cover with Ancef preoperatively. Continue supportive care and pain management as needed. Keep NPO. Urology to follow. Attending note: Patient independently assessed, examined, interviewed, and evaluated. Agree with note as above. Patient's vitals and labs were all reviewed. Pertinent values in the HPI and plan section. Imaging was reviewed interpreted by myself. Agree with read. Vitals were reviewed. Discussed findings extensively with patient and family. Reviewed with nurse richard bob as well as consulting physicians/team. Patient's complicated medical and surgical history was reviewed and summarized above. Patient's surgical, medical, social, and family history were all reviewed with pertinent values as above. Discussed patient's current diagnosis as well as concerns and issues. Reviewed different options moving forward. Discussed potential risks and benefits as well as possible options and concerns. Reviewed potential surgical options and interventions. Discussed potential issues and concerns related to intervention. Risk and benefits were discussed extensively with patient and any available family. Discussed potential risks related to anesthesia. Discussed risks of bleeding infection and injury. Reviewed extensively obstructing stone and bother her increasing creatinine and increasing pain and discomfort. Discussed different options moving forward. Discussed possible stent placement. Reviewed extensively risk benefits of anesthesia. Discussed patient's overall health expectations recovery and other problems. Discussed options for conservative measure and maximum expulsion medical therapy and symptom controlled. Discussed ESWL. Discussed Ureteroscopy with extraction and/or laser lithotripsy. Risks and benefits were discussed. Stone free rates were also discussed as well as possibility of multiple procedures. Ureteral stents were discussed as well as post-operative issues and pain management. All questions were answered. Risks and benefits discussed at length for procedure. These include bleeding, infection, injury to surrounding tissues or organs, and risks associated with anesthesia. Patient states understanding and agrees to proceed. Will sign consent and schedule. Plan for Cystoscopy with left stent History of Present Illness Attending Physician: Sonja Muñoz MD History of Present Illness 63-year-old male who presented to the ED this morning due to severe left flank pain. Patient reported he had been seen at an outside facility 1 week ago and was diagnosed with a kidney stone. He had been discharged home for trial of passage with pain medication and Flomax. Last night he developed severe left flank pain which prompted his arrival in the ED. On arrival he was afebrile, hypertensive but otherwise stable. Labs showing no leukocytosis and an KAYLYNN of 1.76. Urinalysis without signs of infection or blood. CT imaging obtained and demonstrated a 5 mm obstructing left proximal ureteral stone. He is admitted to medicine service. Patient was seen at bedside in the ED today. Awake and resting in bed on arrival. No acute distress. Still with left flank pain and some nausea. Denies fever, chills, vomiting. Nothing to eat/drink since 11pm last night. Voiding without issue. Denies hematuria or dysuria. He also reports no BM in over a week. He denies prior history of kidney stones. Allergies Allergy/AdvReac Type Severity Reaction Status Date / Time No Known Allergies Allergy Verified 12/14/23 22:34 Home Medications Medication Instructions Recorded Confirmed Type armodafinil 150 mg tablet (Nuvigil) 150 mg PO QAM 11/22/18 12/14/23 History canagliflozin 100 mg tablet 100 mg PO QAM 11/22/18 12/14/23 History gabapentin 300 mg capsule 300 mg PO HS 11/22/18 12/14/23 History metformin 1,000 mg tablet 1,000 mg PO BID 11/22/18 12/14/23 History atorvastatin 10 mg tablet 10 mg PO HS 07/02/23 12/14/23 History fenofibrate nanocrystallized 145 145 mg PO HS 07/02/23 12/14/23 History mg tablet cyclobenzaprine 10 mg tablet 10 mg PO DAILY PRN Muscle Spasm 12/14/23 12/14/23 History dulaglutide 1.5 mg/0.5 mL 1.5 mg subcut WK 12/14/23 12/14/23 History subcutaneous pen injector (Trulicity) glucosamine sulf dipot 1 cap PO BID 12/14/23 12/14/23 History chlr,msm,chond 550 mg-C 30 mg-kim 1 mg capsule (Glucosamine Chondroitin) lisinopril 5 mg tablet 5 mg PO QAM 12/14/23 12/14/23 History metoprolol succinate 200 mg 200 mg PO QAM 12/14/23 12/14/23 History tablet,extended release 24 hr zxzxhopkvgyb-rswmdlem-lkuwvt 1 tab PO QAM 12/14/23 12/14/23 History tablet (Multivitamin 50 Plus tablet) tamsulosin 0.4 mg capsule 0.8 mg PO QAM 12/14/23 12/14/23 History tramadol 50 mg tablet 50 mg PO Q6 PRN Pain 12/14/23 12/14/23 History Patient History Medical History Serrated adenoma of colon Sciatica Hypercholesterolemia Exogenous obesity Dysrhythmias Blood pressure elevated without history of HTN Apnea, sleep Diabetes Surgical History History of appendectomy Social History Smoking Status: Unknown if ever smoked Hx Alcohol Use: No Hx Substance Use: No Preferred Language: Mohawk Communication Ability: Effective Drapery Estimator Required: No Beliefs That Will Affect Care: None Current Living Situation: Family Feels Safe at Home: Yes Review of Systems Review of Systems: All systems reviewed & are unremarkable except as noted in HPI & below Physical Exam Constitutional: no acute distress and + uncomfortable Respiratory: no respiratory distress and no labored breathing Musculoskeletal: Head/Neck/Chest: normocephalic Skin: No visible rashes or lesions to exposed skin areas Neurologic: moves all extremities and awake Psychiatric: A+Ox3, euthymic affect Results & Data Vital Signs (Past 12 Hours) Vital Signs Temp Pulse Resp BP Pulse Ox O2 Del Method 12/15/23 12:30 71 16 148/91 H 96 Room Air 12/15/23 08:10 71 16 155/99 H 98 Room Air 12/15/23 06:15 37 C 82 18 146/76 H 94 Room Air PG Care Time/CCT Total # of Minutes Spent Total Time Spent with Patient: Total time spent is greater than 50% in coordination of care (as documented) at patient's floor/unit and/or counseling patient: Coding Level of Care Code 39955 IN/OBS CONSULT LVL 4,60M Diagnoses Ureteral stone N20.1 Hydronephrosis N13.2 Hydronephrosis type: with renal calculous obstruction KAYLYNN (acute kidney injury) N17.9 Acute left flank pain R10.9 (2) Hydronephrosis Hydronephrosis type: with renal calculous obstruction Qualified Code(s): N13.2 - Hydronephrosis with renal and ureteral calculous obstruction
[2023-12-15] MEDS: SOD PHOSPHATE/SOD BIPHOSPHATE ENEMA 132 ML BTL PR STA (14:05)
[2023-12-15] MEDS: MoRPHine SULFATE 4 MG/ML 1 ML CARP\\VIAL IV STA (15:08)
--- NOTE | 2023-12-15 15:35 | Hospitalist Progress Note ---
Date of Service December 15, 2023 Assessment & Plan (1) Ureteral stone: Plan: Presented with intractable left flank pain and noted to have obstructing proximal left ureteric stone Associated left hydronephrosis and symptoms of nausea and vomiting Has been getting intravenous pain medications with some improvement Appreciate urology input and recommendation Intravenous cefazolin has been ordered by the urologist prior to the procedure Plan for proposed urology procedure this afternoon (2) Hydronephrosis: Plan: As above (3) KAYLYNN (acute kidney injury): Plan: Multifactorial: Obstructive uropathy from kidney stone NSAID Rx contributory Continue with intravenous fluid and monitor PRP (4) Cardiomyopathy: Plan: hx nonischemic cardiomyopathy, patient on the dry side PAF, patient NSR Plan Other significant medical conditions remained stable and as below: Anemia possibly from hematuria Hypertension, stable Hyperlipidemia, on statin Rx DM2 on oral medications, well-controlled as of recent hemoglobin A1c of 6.17 October 2023 ISS BG goal 1 10-1 40 History of melanoma status post surgery Narcotic induced constipation DVT prophylaxis. SCDs Re: Hematuria Full code Admission and Anticipated Discharge Date Admission Date: December 14, 2023 Subjective 12/15/2023 The patient was seen and examined in emergency room in presence of the family members He has been complaining of severe pain in the left groin and left side of the abdomen Has had nausea without vomiting Awaiting or for urological procedure Review of Systems Review of Systems: All systems reviewed and are unremarkable except as noted below Physical Exam Physical Exam: Lying in bed with acute distress due to left-sided abdominal pain Constitutional: well developed, well nourished, + ill appearing and + obese Eyes: PERRL, conjunctivae normal, anicteric sclerae ENMT: external ear and nose normal, oropharynx normal Neck: trachea midline, no thyromegaly Respiratory: no respiratory distress Auscultation: lungs clear to auscultation bilaterally Cardiovascular: Rate/Rhythm: regular rate and regular rhythm; not tachycardic Heart Sounds: normal S1 and normal S2; no murmur Extremities: no edema Gastrointestinal (Abdomen): Inspection/Auscultation: + abdomen distended (Soft and mildly tender in the left lower quadrants) and normal bowel sounds Perc ussion/Palpation: + abdomen tender and abdomen soft Musculoskeletal: No acute arthritis involving any of the joint Neurologic: normal touch/pain/proprioception and moves all extremities; no focal motor deficits Psychiatric: A+Ox3, euthymic affect Lymphatic: no cervical or axillary lymphadenopathy Results & Data Results & Data Vital Signs (Past 12 Hours) Vital Signs Temp Pulse Resp BP Pulse Ox O2 Del Method 12/15/23 15:20 87 18 162/85 H 98 Room Air 12/15/23 14:07 77 18 173/96 H 98 Room Air 12/15/23 12:30 71 16 148/91 H 96 Room Air 12/15/23 08:10 71 16 155/99 H 98 Room Air 12/15/23 06:15 37 C 82 18 146/76 H 94 Room Air Laboratory Results Short CBC 12/14/23 12/15/23 Range/Units 19:00 07:13 WBC 10.47 10.28 (4.8-10.8) K/ul Hgb 13.6 L 12.8 L (14.0-18.0) g/dl Hct 40.7 L 39.8 L (42.0-52.0) % Plt Count 250 227 (130-400) K/uL BMP 12/14/23 12/15/23 19:00 07:13 Sodium 134 L 136 Potassium 4.6 4.2 Chloride 98 103 Carbon Dioxide 25 26 BUN 31 H 29 H Creatinine 1.76 H 1.49 H Glucose 86 92 Calcium 10.4 H 9.4 Liver Function 12/14/23 Range/Units 19:00 Total Bilirubin 0.7 (0.2-1.0) mg/dl AST 20 (13-39) U/L ALT 12 (7-52) U/L Alkaline Phosphatase 52 (34-104) U/L Albumin 4.5 (3.4-5.0) gm/dl Urine 12/14/23 Range/Units 21:28 Urine Color Yellow Urine Appearance Clear (Clear) Urine pH 5.0 (4.5-7.5) Ur Specific [place] 1.032 H (1.000-1.030) Urine Protein Negative (Negative) Urine Glucose (UA) 3+ H (Negative) Medications Administered Current Inpatient Medications Acetaminophen (Acetaminophen 325 Mg Tab) 650 mg PO QID PRN PRN Reason: pain/fever Stop: 01/13/24 21:30 Last Admin: 12/15/23 04:03 Dose: 650 mg Atorvastatin Calcium (Atorvastatin 10 Mg Tab) 10 mg PO HS AMI Stop: 01/14/24 20:59 Dextrose (Dextrose 50% 50 Ml Syringe) 25 - 50 ml IV UD PRN; Protocol PRN Reason: Hypoglycemia Protocol Stop: 01/13/24 23:07 Fenofibrate (Fenofibrate Nanocrystallized 48 Mg Tablet) 48 mg PO HS AMI Stop: 01/14/24 20:59 Gabapentin (Gabapentin 300 Mg Cap) 300 mg PO HS AMI Stop: 01/14/24 20:59 Glucagon (Glucagon For Inj 1 Mg Vial) 1 mg SQ UD PRN; Protocol PRN Reason: Hypoglycemia Protocol Stop: 01/13/24 23:07 Glucose (Glucose 40% Gel 15 Gm Tube) 15 - 30 gm PO UD PRN; Protocol PRN Reason: Hypoglycemia Protocol Stop: 01/13/24 23:07 Glucose (Glucose 10 Tab/Tube) 4 - 8 tab PO UD PRN; Protocol PRN Reason: Hypoglycemia Treatment Stop: 01/13/24 23:07 Hydromorphone HCl (Hydromorphone Inj 0.5 Mg/0.5 Ml Syr) 0.5 mg IV Q4H PRN PRN Reason: Pain Stop: 12/28/23 21:30 Last Admin: 12/15/23 08:20 Dose: 0.5 mg Promethazine HCl (Phenergan) 6.25 mg in 50.25 mls @ 201 mls/hr IV Q6H PRN PRN Reason: Nausea And Vomiting Stop: 01/13/24 21:30 Last Infusion: 12/15/23 09:27 Dose: Infused Sodium Chloride (Nss) 1,000 mls @ 100 mls/hr IV .Q10H AMI Stop: 12/16/23 07:59 Last Admin: 12/15/23 09:54 Dose: 100 mls/hr Cefazolin Sodium (Ancef 2000mg) 2,000 mg in 15 mls @ 3.75 mls/min IV PREOP ONE; Protocol Stop: 12/15/23 16:03 Insulin Aspart (Insulin Aspart Per Unit Charge) 0 units SC Q6 AMI Stop: 01/14/24 00:00 Last Admin: 12/15/23 13:08 Dose: Not Given Lorazepam (Lorazepam 0.5 Mg Tab) 0.5 mg PO TID PRN PRN Reason: Anxiety Stop: 01/13/24 22:04 Metoprolol Succinate (Metoprolol Succ 50mg Ext Rel Tab) 200 mg PO QAM [facility] Stop: 01/14/24 08:59 Last Admin: 12/15/23 08:12 Dose: 200 mg Miscellaneous (Carbohydrates For Hypoglycemia ) 15 - 30 gm PO UD PRN PRN Reason: Hypoglycemia Protocol Stop: 01/13/24 23:07 Miscellaneous (Order Awaiting Action: Armodafinil [Nuvigil] 150 Mg Tablet) 1 each N/A QS [facility] Stop: 01/14/24 07:59 Last Admin: 12/15/23 09:57 Dose: Not Given Multivitamins/Minerals (Cerovite Adv Formula Tab) 1 tab PO QAM [facility] Stop: 01/14/24 08:59 Last Admin: 12/15/23 08:12 Dose: 1 tab Oxycodone HCl (Oxycodone Hcl Ir 5 Mg Tab (Immediate Release)) 5 - 10 mg PO QID PRN PRN Reason: Pain Stop: 12/28/23 21:30 Last Admin: 12/15/23 09:57 Dose: 10 mg Senna/Docusate Sodium (Docusate Sodium/Senna 50/8.6mg Tab) 1 tab PO QAM [facility] Stop: 01/13/24 22:04 Last Admin: 12/15/23 08:12 Dose: 1 tab Tamsulosin HCl (Tamsulosin Hcl 0.4 Mg Cap) 0.8 mg PO QAM [facility] Stop: 01/14/24 08:59 Last Admin: 12/15/23 08:12 Dose: 0.8 mg (2) Hydronephrosis Hydronephrosis type: with renal calculous obstruction Qualified Code(s): N13.2 - Hydronephrosis with renal and ureteral calculous obstruction
[2023-12-15] MEDS ORDERED: fentaNYL citrate PF 100 MCG/2 ML VIAL ONE (16:02)
[2023-12-15] MEDS: ceFAZolin 2000MG 2,000 MG/15 ML SYR IV ONE (16:11)
--- NOTE | 2023-12-15 16:15 | Anesthesiology Consultation ---
Date of Service December 15, 2023 Assessment & Plan Chart Review Chart Review: Acceptable Risk for Surgery Consults Requested none History Surgery Operation Date: 12/15/23 15:10 Proposed Procedures p Cystoscopy, Left Retrograde and Stent Placement - Braulio Lauren DO Height/Weight Height: 6 ft Weight: 98.7 kg Allergies Allergy/AdvReac Type Severity Reaction Status Date / Time No Known Allergies Allergy Verified 12/14/23 22:34 Medications Home Medications Medication Instructions Recorded Confirmed Last Taken armodafinil 150 mg tablet (Nuvigil) 150 mg PO QAM 11/22/18 12/14/23 12/14/23 canagliflozin 100 mg tablet 100 mg PO QAM 11/22/18 12/14/23 12/14/23 gabapentin 300 mg capsule 300 mg PO 11/22/18 12/14/23 12/13/23 metformin 1,000 mg tablet 1,000 mg PO BID 11/22/18 12/14/23 12/14/23 atorvastatin 10 mg tablet 10 mg PO HS 07/02/23 12/14/23 12/13/23 fenofibrate nanocrystallized 145 145 mg PO HS 07/02/23 12/14/23 12/13/23 mg tablet cyclobenzaprine 10 mg tablet 10 mg PO DAILY PRN Muscle Spasm 12/14/23 12/14/23 Unknown dulaglutide 1.5 mg/0.5 mL 1.5 mg subcut WK 12/14/23 12/14/23 12/11/23 subcutaneous pen injector (Trulicity) glucosamine sulf dipot 1 cap PO BID 12/14/23 12/14/23 12/14/23 chlr,msm,chond 550 mg-C 30 mg-kim 1 mg capsule (Glucosamine Chondroitin) lisinopril 5 mg tablet 5 mg PO QAM 12/14/23 12/14/23 12/14/23 metoprolol succinate 200 mg 200 mg PO QAM 12/14/23 12/14/23 12/14/23 tablet,extended release 24 hr [id number] 1 tab PO QAM 12/14/23 12/14/23 12/14/23 tablet (Multivitamin 50 Plus tablet) tamsulosin 0.4 mg capsule 0.8 mg PO QAM 12/14/23 12/14/23 12/14/23 tramadol 50 mg tablet 50 mg PO Q6 PRN Pain 12/14/23 12/14/23 Unknown Active Medications Generic Name Dose Route Start Last Admin Trade Name Freq PRN Reason Stop Dose Admin Acetaminophen 650 mg 12/14/23 21:31 12/15/23 04:03 Acetaminophen 325 Mg Tab PO 01/13/24 21:30 650 mg QID PRN Administration pain/fever Hydromorphone HCl 0.5 mg 12/14/23 21:31 12/15/23 08:20 Hydromorphone Inj 0.5 Mg/0.5 Ml Syr IV 12/28/23 21:30 0.5 mg Q4H PRN Administration Pain Promethazine HCl 6.25 mg in 50.25 mls @ 201 mls/hr 12/14/23 21:31 12/15/23 09:27 Phenergan IV 01/13/24 21:30 Infused Q6H PRN Infusion Nausea And Vomiting Sodium Chloride 1,000 mls @ 100 mls/hr 12/15/23 08:00 12/15/23 09:54 Nss IV 12/16/23 07:59 100 mls/hr .Q10H AMI Administration Insulin Aspart 0 units 12/15/23 00:00 12/15/23 13:08 Insulin Aspart Per Unit Charge SC 01/14/24 00:00 Not Given Q6 AMI Metoprolol Succinate 200 mg 12/15/23 09:00 12/15/23 08:12 Metoprolol Succ 50mg Ext Rel Tab PO 01/14/24 08:59 200 mg QAM AMI Administration Miscellaneous 1 each 12/15/23 08:00 12/15/23 09:57 Order Awaiting Action: Armodafinil [Nuvigil] 150 Mg Tablet N/A 01/14/24 07:59 Not Given QS AMI Multivitamins/Minerals 1 tab 12/15/23 09:00 12/15/23 08:12 Cerovite Adv Formula Tab PO 01/14/24 08:59 1 tab QAM AMI Administration Oxycodone HCl 5 - 10 mg 12/14/23 21:31 12/15/23 09:57 Oxycodone Hcl Ir 5 Mg Tab (Immediate Release) PO 12/28/23 21:30 10 mg QID PRN Administration Pain Senna/Docusate Sodium 1 tab 12/14/23 22:05 12/15/23 08:12 Docusate Sodium/Senna 50/8.6mg Tab PO 01/13/24 22:04 1 tab QAM AMI Administration Tamsulosin HCl 0.8 mg 12/15/23 09:00 12/15/23 08:12 Tamsulosin Hcl 0.4 Mg Cap PO 01/14/24 08:59 0.8 mg QAM AMI Administration NPO Date Last Intake of Fluids: 12/14/23 Time Last Intake of Fluids: 23:00 Date Last Intake of Solids: 12/14/23 Time Last Intake of Solids: 23:00 Past Medical History Medical History Serrated adenoma of colon Sciatica Hypercholesterolemia Exogenous obesity Dysrhythmias Blood pressure elevated without history of HTN Apnea, sleep Diabetes Past Surgical History Surgical History History of appendectomy Social History Smoking Status: Unknown if ever smoked Hx Alcohol Use: No Hx Substance Use: No Physical Exam Vital Signs Last Vital Signs Temp 37.6 C H 12/15/23 15:46 Pulse 86 12/15/23 15:46 Resp 18 12/15/23 15:46 BP 178/102 H 12/15/23 15:46 Pulse Ox 97 12/15/23 15:46 O2 Del Method Room Air 12/15/23 15:46 Testing Laboratory Results 12/15/23 07:13 12/15/23 07:13 Urine Color Yellow 12/14/23 21:28 Urine Appearance Clear (Clear) 12/14/23 21:28 Urine pH 5.0 (4.5-7.5) 12/14/23 21:28 Ur Specific [place] 1.032 (1.000-1.030) H 12/14/23 21:28 Urine Protein Negative (Negative) 12/14/23 21:28 Urine Glucose (UA) 3+ (Negative) H 12/14/23 21:28 Urine Ketones 1+ (Negative) H 12/14/23 21:28 Urine Nitrite Negative (Negative) 12/14/23 21:28 Ur Leukocyte Esterase Negative (Negative) 12/14/23 21:28 12/15/23 12/15/23 12:57 06:13 POC Glucose 78 99
[2023-12-15] MEDS ORDERED: PROPOFOL IV EMULSION 10 MG/ML 20 ML VIAL IV ONE (16:23)
[2023-12-15] MEDS ORDERED: ONDANSETRON INJ 2 MG/ML 2 ML VIAL ONE (16:24)
[2023-12-15] MEDS ORDERED: LIDOCAINE 2% 20 MG/ML 5 ML SYR IV ONE (16:24)
[2023-12-15] MEDS ORDERED: DEXAMETHASONE SOD INJ 4 MG/ML VIAL ONE (16:24)
[2023-12-15] MEDS: DIATRIZOATE MEGLUMINE 30% 100ML VIAL INSTIL ONE (16:43)
--- NOTE | 2023-12-15 16:50 | Operative Report ---
PG Post Operative Report Pre & Post Diagnosis Operation Date: 12/15/23 15:10 Pre-Op Diagnosis: Uropathy, Hydronephrosis Post-Op Diagnosis: Uropathy, Hydronephrosis I identified the patient and participated in the time-out.: Yes Procedure Operation Date: 12/15/23 15:10 Actual Procedures p Cystoscopy, Left Retrograde and Stent Placement(Left) - Braulio Lauren DO Surgeon Braulio Lauren, II, DO Animal Anatomist None Estimated Blood Loss 0 Findings Consistent with Post-Op Diagnosis Stone significantly obstructing the left kidney at the proximal/mid ureter. Significant hydronephrosis. Debris, likely old blood in renal pelvis. Stent placed in good position. Specimens None Drains 6 Fr x 26 cm left Stent Anesthesia Type MAC Complications none Disposition Disposition: Recovery Room Indications Patient with obstruction. Risks and benefits discussed at length. Description of Procedure Patient was consented and brought back to the operating room. Patient was placed under anesthesia in the supine position and moved to the dorsal lithotomy position. Patient was prepped and draped in the regular sterile fashion. A time out was completed. A 30degree Cystoscope was placed into the bladder and the entire bladder was examined. The UO's were identified. The UO was cannulized with a catheter and a retrograde pyelogram was completed. The stone was found to be severely obstructing the proximal/mid ureter. A wire was then placed. The wire was able to be manipulated past the stone. A small amount of debris was found to be draining. The 5 [place] open-ended catheter was then attempted to be manipulated and moved past the stone however with no longer advance likely due to the stone being severely obstructed. The stone also would not displace. The wire however did remain in good position. With the wire in place, a 6 Fr Double J stent was placed. It was confirmed with fluoroscopy. With the stent in place, the bladder was emptied. On emptying the bladder a large amount of dark red/brown/tarun appearing debris was found to be draining from the left kidney. Likely debris/hematuria from the collecting system. The scope was removed. The patient was cleaned, aroused from anesthesia, and transferred to the pacu in stable condition having tolerated the procedure well with no complications. I was present and participated in all aspects of the procedure. The patient will be monitored in the PACU until transferred. Will plan to monitor. Patient can likely be discharged with plans for stone treatment in approximately 1 to 2 weeks after time for resolution I attest to the content of the Intraoperative Record and any orders documented therein. Any exceptions are noted below.
--- NOTE | 2023-12-15 16:56 | Fluoroscopy Report ---
FL retrograde includes kub CLINICAL HISTORY: Left-sided cystoscopy. COMPARISON STUDY: CT of the abdomen and pelvis December 14, 2023. FLUOROSCOPY TIME: 26 seconds. Ka, r: 7.77 mGy FLUOROSCOPIC IMAGES: 2 FINDINGS: Fluoroscopy was provided during cystoscopy, left retrograde pyelogram and left ureteral krystal nt placement. The left ureteral stent is well-positioned. IMPRESSION: Fluoroscopy provided during cystoscopy, left retrograde pyelogram and left ureteral sten t insertion. ACT 112: Negative or not required by law. Electronically signed by: Jaime Culver M.D. 12/15/2023 4:54 PM
--- NOTE | 2023-12-15 18:25 | Anesthesiology Progress Note ---
Date of Service December 15, 2023 Anesthesia Post Procedure Vital Signs Vital Signs: Temp Pulse Pulse Pulse Resp BP BP 12/15/23 18:16 36.7 C 67 17 156/82 H 12/15/23 17:45 36.9 C 84 16 149/78 H 12/15/23 17:20 36.8 C 82 13 114/71 12/15/23 17:10 83 12 99/67 L 12/15/23 17:00 83 12 120/70 12/15/23 16:51 36.0 C L 78 14 92/60 L 12/15/23 15:46 37.6 C H 86 18 12/15/23 15:20 87 18 12/15/23 14:07 77 18 12/15/23 12:30 71 16 12/15/23 08:10 71 16 12/15/23 06:15 37 C 82 18 12/14/23 23:42 74 18 12/14/23 23:00 36.9 C 79 19 12/14/23 21:18 84 19 12/14/23 19:57 91 H 19 12/14/23 18:56 36.6 C 89 18 164/98 H BP Pulse Ox O2 Del Method O2 Flow Rate 12/15/23 18:16 96 Room Air 12/15/23 17:45 95 Room Air 12/15/23 17:20 94 Room Air 12/15/23 17:10 98 Room Air 12/15/23 17:00 95 Oxymask 6 12/15/23 16:51 97 Oxymask 6 12/15/23 15:46 178/102 H 97 Room Air 12/15/23 15:20 162/85 H 98 Room Air 12/15/23 14:07 173/96 H 98 Room Air 12/15/23 12:30 148/91 H 96 Room Air 12/15/23 08:10 155/99 H 98 Room Air 12/15/23 06:15 146/76 H 94 Room Air 12/14/23 23:42 135/77 99 Room Air 12/14/23 23:00 154/89 H 99 Room Air 12/14/23 21:18 138/85 94 Room Air 12/14/23 19:57 178/114 H 98 Room Air 12/14/23 18:56 97 Room Air Pain Intensity Lower Back: Pain Intensity: 8 Transfer of Care Handoff Completed per policy Notes Mental Status: alert / awake / arousable and participated in evaluation Patient Amnestic to Procedure: Yes Nausea / Vomiting: adequately controlled Pain: adequately controlled Airway Patency, RR, SpO2: stable & adequate BP & HR: stable & adequate Hydration State: stable & adequate Anesthetic Complications: no major complications apparent
[2023-12-15] MEDS ORDERED: Nursing to Pharmacy Communication SCH (18:30)
[2023-12-15] MEDS: FENOFIBRATE NANOCRYSTALLIZED 48 MG TABLET PO SCH (21:38)
[2023-12-15] MEDS: GABAPENTIN 300 MG CAP PO SCH (21:38)
[2023-12-15] MEDS: ATORVASTATIN 10 MG TAB PO SCH (21:38)
[2023-12-15] MEDS: INSULIN ASPART PER UNIT CHARGE SC SCH (21:50)
[2023-12-16 07:13] LABS: Basophils # (auto) 0.02 K/uL (0.00-0.20); Basophils % (auto) 0.2 %; Eosinophils % (auto) 0.9 %; Hematocrit (blood only) 39.5 % (42.0-52.0); Hemoglobin 12.7 g/dl (14.0-18.0); Immature Granulocytes # (auto) 0.06 K/uL (0.01-0.20); Immature Granulocytes % (auto) 0.6 %; Lymphocytes # (auto) 1.14 K/uL (1.20-3.40); Lymphocytes % (auto) 10.7 %; Mean Corpuscular Hemoglobin 28.4 pg (25.0-34.0); Mean Corpuscular Hgb Conc 32.2 g/dL (32.0-36.0); Mean Corpuscular Volume 88.4 fL (80.0-100.0); Monocytes % (auto) 10.3 %; Neutrophils # (auto) 8.28 K/uL (1.40-6.50); Neutrophils % (auto) 77.3 %; Platelet Count 239 K/uL (130-400); RDW Coefficient of Variation 13.9 % (11.5-14.5); RDW Standard Deviation 45.1 fL (36.4-46.3); Red Blood Count 4.47 M/uL (4.70-6.10)
[2023-12-16 07:30] VITALS: RESP 16
[2023-12-16 07:35] LABS: BUN Creatinine Ratio 19.2 (10-20); Creatinine Clr Calc Pharmacy 70.8 ml/min; Potassium 4.2 mmol/L (3.5-5.1)
[2023-12-16] MEDS ORDERED: CYCLOBENZAPRINE HCL 10 MG TAB PO PRN (07:53)
[2023-12-16] MEDS: lisinopril 5 MG TAB PO SCH (09:08)
--- NOTE | 2023-12-16 11:58 | Urology Progress Note ---
Date of Service December 16, 2023 Assessment & Plan (1) Ureteral stone: (2) Hydronephrosis: (3) KAYLYNN (acute kidney injury): (4) Acute left flank pain: Plan Postop day 1 status post cystoscopy with stent placement. Left obstructing stone. 63 yo male admitted with intractable left flank pain and KAYLYNN secondary to an obstructing 5 mm proximal left ureteral stone. Patient has tolerated stent. Did have large amount of debris largely appearing to be old blood the drain from the kidney. Had significantly obstructing stone which required manipulation in order to bypass. Was able to have stent placed. Discussed options moving forward. Discussed monitoring. Discussed pain control and management of lower urinary tract symptoms. Will likely need 1 to 2 weeks of antibiotic coverage and decompression of the system with passive dilation with stent with plans for possible intervention on stone after recovery. Can have patient follow-up for stone treatment Admission and Anticipated Discharge Date Admission Date: December 14, 2023 Subjective Postop from stent placement for obstruction issues. Patient has been tolerating well. Has noticed some frequency and urgency. Has not had severe pain in the back and flank. Does have occasional burning and irritation. No severe episodes or major changes. No new nausea or vomiting. Had tolerated anesthesia without major problems Review of Systems Review of Systems: All systems reviewed & are unremarkable except as noted in HPI & below Physical Exam Physical Exam: General: Alert in no acute distress. HEENT: Normocephalic Atraumatic. Inspection normal. Cranial Nerves 2-12 Grossly intact. Normal inspection of face. Normal inspection of neck. Psychologic: Normal affect. Respiratory: Nonlabored. No use of accessory muscles. No tachypnea or dyspnea. Cardiovascular: No tachycardia Skin: [place] and Dry. No rashes or visible lesions. Extremities/Lymphatics: No edema Abdomen: Soft Non-distended. No rebound or guarding. Results & Data Vital Signs (Past 12 Hours) Vital Signs Temp Pulse Resp BP Pulse Ox O2 Del Method 12/16/23 07:29 36.8 C 64 16 161/80 H 99 Room Air 12/16/23 03:58 36.8 C 56 L 15 147/72 H 98 Room Air PG Care Time/CCT Total # of Minutes Spent Total Time Spent with Patient: Total time spent is greater than 50% in coordination of care (as documented) at patient's floor/unit and/or counseling patient: Coding Level of Care Code 03778 SUB INP/OBS CARE MIN Diagnoses Ureteral stone N20.1 Hydronephrosis N13.2 Hydronephrosis type: with renal calculous obstruction KAYLYNN (acute kidney injury) N17.9 Acute left flank pain R10.9 (2) Hydronephrosis Hydronephrosis type: with renal calculous obstruction Qualified Code(s): N13.2 - Hydronephrosis with renal and ureteral calculous obstruction
[2023-12-16 12:29] VITALS: BP 149/74; PULSE 72; TEMP 98.6; O2SAT 97
[2023-12-16] MEDS: SOD PHOSPHATE/SOD BIPHOSPHATE ENEMA 132 ML BTL PR STA (12:50)
--- NOTE | 2023-12-16 13:28 | Hospitalist Progress Note ---
Date of Service December 16, 2023 Assessment & Plan (1) Ureteral stone: Plan: Presented with intractable left flank pain and noted to have obstructing proximal left ureteric stone Associated left hydronephrosis and symptoms of nausea and vomiting Has been getting intravenous pain medications with some improvement Appreciate urology input and recommendation Intravenous cefazolin has been ordered by the urologist prior to the procedure Plan for proposed urology procedure this afternoon Status post cystoscopy, left retrograde pyelography and stent placement on He has been doing much better today and was cleared by the urologist to go home He will have an outpatient appointment for remaining procedures as planned He will be given antibiotic as per recommendation from the urologist (2) Hydronephrosis: Plan: As above (3) KAYLYNN (acute kidney injury): Plan: Multifactorial: Obstructive uropathy from kidney stone NSAID Rx contributory Continue with intravenous fluid and monitor PRP Kidney function has been normalized (4) Cardiomyopathy: Plan: hx nonischemic cardiomyopathy, patient on the dry side PAF, patient NSR Plan Other significant medical conditions remained stable and as below: Anemia possibly from hematuria Hypertension, stable Hyperlipidemia, on statin Rx DM2 on oral medications, well-controlled as of recent hemoglobin A1c of 6.17 October 2023 ISS BG goal 1 10-1 40 History of melanoma status post surgery Narcotic induced constipation DVT prophylaxis. SCDs Re: Hematuria Full code He will be discharged home this afternoon Admission and Anticipated Discharge Date Admission Date: December 14, 2023 Subjective 12/15/2023 The patient was seen and examined in emergency room in presence of the family members He has been complaining of severe pain in the left groin and left side of the abdomen Has had nausea without vomiting Awaiting or for urological procedure 12/16/2023 The patient was seen and examined in medical floor in presence of the family members He has been doing fine and he wants to go home Back pain is almost gone, does not have any fever and no chills and no nausea and/or vomiting Review of Systems Review of Systems: All systems reviewed and are unremarkable except as noted below Physical Exam Physical Exam: Lying in bed with acute distress due to left-sided abdominal pain Constitutional: well developed, well nourished, + ill appearing and + obese Eyes: PERRL, conjunctivae normal, anicteric sclerae ENMT: external ear and nose normal, oropharynx normal Neck: trachea midline, no thyromegaly Respiratory: no respiratory distress Auscultation: lungs clear to auscultation bilaterally Cardiovascular: Rate/Rhythm: regular rate and regular rhythm; not tachycardic Heart Sounds: normal S1 and normal S2; no murmur Extremities: no edema Gastrointestinal (Abdomen): Inspection/Auscultation: + abdomen distended (Soft and mildly tender in the left lower quadrants) and normal bowel sounds Percussion/Palpation: + abdomen tender and abdomen soft Neurologic: normal touch/pain/proprioception and moves all extremities; no foc al motor deficits Psychiatric: A+Ox3, euthymic affect Lymphatic: no cervical or axillary lymphadenopathy Results & Data Results & Data Vital Signs (Past 12 Hours) Vital Signs Temp Pulse Resp BP Pulse Ox O2 Del Method 12/16/23 11:35 37.0 C 72 16 149/74 H 97 Room Air 12/16/23 07:29 36.8 C 64 16 161/80 H 99 Room Air 12/16/23 03:58 36.8 C 56 L 15 147/72 H 98 Room Air Laboratory Results Short CBC 12/16/23 Range/Units 06:16 WBC 10.70 (4.8-10.8) K/ul Hgb 12.7 L (14.0-18.0) g/dl Hct 39.5 L (42.0-52.0) % Plt Count 239 (130-400) K/uL BMP 12/16/23 06:16 Sodium 135 L Potassium 4.2 Chloride 102 Carbon Dioxide 25 BUN 25 H Creatinine 1.30 Glucose 81 Calcium 9.0 Medications Administered Current Inpatient Medications Acetaminophen (Acetaminophen 325 Mg Tab) 650 mg PO QID PRN PRN Reason: pain/fever Stop: 01/13/24 21:30 Last Admin: 12/15/23 04:03 Dose: 650 mg Atorvastatin Calcium (Atorvastatin 10 Mg Tab) 10 mg PO HS AMI Stop: 01/14/24 20:59 Last Admin: 12/15/23 21:38 Dose: 10 mg Cyclobenzaprine HCl (Cyclobenzaprine Hcl 10 Mg Tab) 10 mg PO DAILY PRN PRN Reason: Muscle Spasm Stop: 01/15/24 07:52 Dextrose (Dextrose 50% 50 Ml Syringe) 25 - 50 ml IV UD PRN; Protocol PRN Reason: Hypoglycemia Protocol Stop: 01/13/24 23:07 Fenofibrate (Fenofibrate Nanocrystallized 48 Mg Tablet) 48 mg PO HS [facility] Stop: 01/14/24 20:59 Last Admin: 12/15/23 21:38 Dose: 48 mg Gabapentin (Gabapentin 300 Mg Cap) 300 mg PO [facility] Stop: 01/14/24 20:59 Last Admin: 12/15/23 21:38 Dose: 300 mg Glucagon (Glucagon For Inj 1 Mg Vial) 1 mg SQ UD PRN; Protocol PRN Reason: Hypoglycemia Protocol Stop: 01/13/24 23:07 Glucose (Glucose 40% Gel 15 Gm Tube) 15 - 30 gm PO UD PRN; Protocol PRN Reason: Hypoglycemia Protocol Stop: 01/13/24 23:07 Glucose (Glucose 10 Tab/Tube) 4 - 8 tab PO UD PRN; Protocol PRN Reason: Hypoglycemia Treatment Stop: 01/13/24 23:07 Hydromorphone HCl (Hydromorphone Inj 0.5 Mg/0.5 Ml Syr) 0.5 mg IV Q4H PRN PRN Reason: Pain Stop: 12/28/23 21:30 Last Admin: 12/15/23 08:20 Dose: 0.5 mg Promethazine HCl (Phenergan) 6.25 mg in 50.25 mls @ 201 mls/hr IV Q6H PRN PRN Reason: Nausea And Vomiting Stop: 01/13/24 21:30 Last Infusion: 12/15/23 09:27 Dose: Infused Insulin Aspart (Insulin Aspart Per Unit Charge) 0 units SC [facility] Stop: 01/14/24 00:00 Last Admin: 12/16/23 12:46 Dose: Not Given Lisinopril (Lisinopril 5 Mg Tab) 5 mg PO [facility] Stop: 01/15/24 08:59 Last Admin: 12/16/23 09:08 Dose: 5 mg Lorazepam (Lorazepam 0.5 Mg Tab) 0.5 mg PO TID PRN PRN Reason: Anxiety Stop: 01/13/24 22:04 Metoprolol Succinate (Metoprolol Succ 50mg Ext Rel Tab) [facility] [place]: 01/14/24 08:59 Last Admin: 12/16/23 08:41 Dose: 200 mg Miscellaneous (Carbohydrates For Hypoglycemia ) 15 - 30 gm PO UD PRN PRN Reason: Hypoglycemia Protocol Stop: 01/13/24 23:07 Miscellaneous (Order Awaiting Action: Armodafinil [Nuvigil] 150 Mg Tablet) 1 each N/A QS [facility] Stop: 01/14/24 07:59 Last Admin: 12/16/23 08:42 Dose: Not Given Multivitamins/Minerals (Cerovite Adv Formula Tab) 1 [facility] [place]: 01/14/24 08:59 Last Admin: 12/16/23 08:41 Dose: 1 tab Oxycodone HCl (Oxycodone Hcl Ir 5 Mg Tab (Immediate Release)) 5 - 10 mg PO QID PRN PRN Reason: Pain Stop: 12/28/23 21:30 Last Admin: 12/15/23 09:57 Dose: 10 mg Senna/Docusate Sodium (Docusate Sodium/Senna 50/8.6mg Tab) 1 tab PO QAM [facility] Stop: 01/13/24 22:04 Last Admin: 12/16/23 08:40 Dose: 1 tab Tamsulosin HCl (Tamsulosin Hcl 0.4 Mg Cap) 0.8 mg PO [facility] Stop: 01/14/24 08:59 Last Admin: 12/16/23 08:40 Dose: 0.8 mg (2) Hydronephrosis Hydronephrosis type: with renal calculous obstruction Qualified Code(s): N13.2 - Hydronephrosis with renal and ureteral calculous obstruction
--- NOTE | 2023-12-17 07:54 | Discharge Summary ---
Date of Service December 17, 2023 Admission HPI Per Admitting Provider History obtained from patient and records. Medical history significant for hx nonischemic cardiomyopathy (EF 60-65 %, TTE 2020), PAF, PVCs, hypertension, hyperlipidemia, DARELL, DM2 on oral medications, history of melanoma status post surgery, urolithiasis. Last confinement 2015 for right knee cellulitis/prepatellar bursitis. 2 weeks ago, patient noted intermittent achy left flank pain symptoms which started from lifting a bag of cement. Last week, patient noted intense left flank discomfort associated with some hematuria, nausea, vomiting symptoms while shopping for furniture with at [place]. Patient seen at [facility] ER. CAT scan showed kidney stone on the left side. Patient prescribed Flomax, home narcotic, and NSAID medication. He was instructed to strain urine. Intermittent relief of pain at home. Constipation symptoms noted. Patient consulted ER for worsening symptoms today. No fever, no chills. Denies headache, chest pain, SOB. Medical History as above Surgical History : Skin cancer surgery/skin grafting Family History : Heart disease Personal/Social history : Non-smoker, no EtOH intake, hospital facilities employee Admission Exam Per Admitting Provider Physical Exam: GENERAL: Comfortable, pleasant, no respiratory distress SKIN: Normal color, warm HEENT: [place] palpebral conjunctivae, no ptosis, dry buccal mucosa NECK : Supple, no tenderness CHEST : CTA, no tenderness HEART : RRR, no obvious murmurs ABDOMEN: Some distention, left flank tenderness EXTREMITIES : No LE swelling/tenderness, no other conspicuous deformities noted NEUROLOGIC : Coherent, no facial asymmetry, no other gross focality Principal Diagnosis left ureteric stone with hydronephrosis, paroxysmal atrial fibrillation, history of cardiomyopathy Discharge Exam Lying in bed with acute distress due to left-sided abdominal pain Constitutional well developed, well nourished, + ill appearing and + obese Eyes PERRL, conjunctivae normal, anicteric sclerae ENMT external ear and nose normal, oropharynx normal Neck trachea midline, no thyromegaly Respiratory no respiratory distress Auscultation: lungs clear to auscultation bilaterally Cardiovascular Rate/Rhythm: regular rate and regular rhythm; not tachycardic Heart Sounds: normal S1 and normal S2; no murmur Extremities: no edema Gastrointestinal (Abdomen) Inspection/Auscultation: + abdomen distended (Soft and mildly tender in the left lower quadrants) and normal bowel sounds Percussion/Palpation: + abdomen tender and abdomen soft Neurologic normal touch/pain/proprioception and moves all extremities; no focal motor deficits Psychiatric A+Ox3, euthymic affect Lymphatic no cervical or axillary lymphadenopathy Discharge Data Allergies Allergy/AdvReac Type Severity Reaction Status Date / Time No Known Allergies Allergy Verified 12/14/23 22:34 Consultations 12/14/23 21:27 ED Decision to Admit Stat 12/14/23 22:18 Consult Urology Routine Procedures Performed Operation Date: 12/15/23 15:10 Actual Procedures p Cystoscopy, Left Retrograde and Stent Placement(Left) - Braulio Lauren, Ordered Studies 12/14/23 19:16 CT abd pelvis wo con Stat 12/15/23 16:15 FL retrograde includes kub Routine Hospital Course (1) Ureteral stone: Presented with intractable left flank pain and noted to have obstructing proximal left ureteric stone Associated left hydronephrosis and symptoms of nausea and vomiting Has been getting intravenous pain medications with some improvement Appreciate urology input and recommendation Intravenous cefazolin has been ordered by the urologist prior to the procedure Plan for proposed urology procedure this afternoon Status post cystoscopy, left retrograde pyelography and stent placement on He has been doing much better today and was cleared by the urologist to go home He will have an outpatient appointment for remaining procedures as planned He will be given antibiotic as per recommendation from the urologist (2) Hydronephrosis: As above (3) KAYLYNN (acute kidney injury): Multifactorial: Obstructive uropathy from kidney stone NSAID Rx contributory Continue with intravenous fluid and monitor PRP Kidney function has been normalized (4) Cardiomyopathy: hx nonischemic cardiomyopathy, patient on the dry side PAF, patient NSR Plan Other significant medical conditions remained stable and as below: Anemia possibly from hematuria Hypertension, stable Hyperlipidemia, on statin Rx DM2 on oral medications, well-controlled as of recent hemoglobin A1c of 6.17 October 2023 ISS BG goal 1 10-1 40 History of melanoma status post surgery Narcotic induced constipation DVT prophylaxis. SCDs Re: Hematuria Full code He will be discharged home this afternoon Total Time Total Time Spent Total Time Spent (In Minutes): 35 minutes Discharge Plan Discharge Items Patient Disposition: Home - Self-Care Reason For Visit: OBS UROPATHY Discharge Diagnosis: left ureteric stone with hydronephrosis, paroxysmal atrial fibrillation, history of cardiomyopathy Condition on Discharge: Fair Activity: Resume your previous activity Non-emergency contact: Primary Care Provider Call non-emergency contact if: you have any medication questions and your symptoms worsen Follow-up/Referrals: Shailesh Guerra [Primary Care Provider] - ( Your doctor's office will give you a call with an appointment within 7 days) Diet: Carb Consistent or DM2 and Heart Healthy Addtl Attending Provider Instructions: Please take precautions to avoid fall Try to drink more fluid Finish the course of antibiotic You can try some [id number] probiotics as long as you are on antibiotic Please keep appointments with the healthcare providers Pending Studies at Discharge: No Stand-Alone Forms: My [facility] Circular, Smoking Cessation Medications and DC Order Prescriptions: New cephalexin 500 mg capsule 500 mg PO Q8H 7 Days Qty: 21 0RF Continued gabapentin 300 mg capsule 300 mg PO HS canagliflozin 100 mg tablet 100 mg PO QAM metformin 1,000 mg tablet 1,000 mg PO BID armodafinil [Nuvigil] 150 mg tablet 150 mg PO QAM atorvastatin 10 mg tablet 10 mg PO HS fenofibrate nanocrystallized 145 mg tablet 145 mg PO HS tamsulosin 0.4 mg capsule 0.8 mg PO QAM Trulicity 1.5 mg/0.5 mL pen injector 1.5 mg SUBCUT WK Rx Instructions: mondays metoprolol succinate 200 mg tablet extended release 24 hr 200 mg PO QAM cyclobenzaprine 10 mg tablet 10 mg PO DAILY PRN (Reason: Muscle Spasm) lisinopril 5 mg tablet 5 mg PO QAM Glucosamine Chondroitin 550-30-1 mg Capsule 1 cap PO BID Multivitamin 50 Plus Tablet 1 tab PO QAM tramadol 50 mg tablet 50 mg PO Q6 PRN (Reason: Pain) Qty: 15 0RF Discharge Orders: Discharge Order (Routine); Ordered 12/16/23 Ordered By: Sonja Muñoz Admission Data Admit Date/Time: 12/14/23 22:03 Attending Provider: Sonja Muñoz Admit Provider: Pedro Bauer Primary Care Provider: Shailesh Guerra Other Providers: Pedro Bauer; Spencer Romero; Darnell Valente; Johanna Gibson; Braulio Lauren; Reema Ruiz; Anette Fry; Justin Davis; Yenni Burciaga; Adolfo Riley; Elliott Harley; Obdulio Vale. Other Interventions: Discharge Summary Assessment (RN) Last Done: 12/16/23 13:37
== END 2023-12-16 14:04 | disposition home or self-care (01) | DRG 660 ==
LOC: ED 18:47 → EDINP 22:03 → 3W 12-15 17:45